=== PATIENT | male | born 1960 | race African-American/Black ===

== ENCOUNTER 2024-05-19 13:57 | Emergency (ER) | payer OTHER ==
[2024-05-19 14:33] VITALS: PULSE 88; RESP 18; TEMP 97.9; BMI 29.1
[2024-05-19 15:39] LABS: EOS % 2.9 % (0-4.5); HEMATOCRIT 35.3 % (35.4-49); HEMOGLOBIN 11.4 GM/dL (11.7-16.9); LYMPH % 21.8 % (8-40); MCH 26.6 pg (25.7-33.7); MCHC 32.4 g/dl (32.0-35.9); MEAN CELL VOLUME 82.2 fl (80-96); MEAN PLT VOLUME 7.3 fl (7.5-11.1); MONO % 8.3 % (3.8-10.2); PLATELET COUNT 316 10^3/uL (134-434); RDW 13.3 % (11.9-15.9); WHITE BLOOD COUNT 7.7 K/mm3 (4.0-10.0)
[2024-05-19 16:02] LABS: POTASSIUM 4.4 mmol/L (3.5-5.1)
[2024-05-19 16:04] LABS: CALCIUM 9.3 mg/dL (8.5-10.1)
[2024-05-19 16:05] LABS: ALBUMIN 3.2 g/dl (3.4-5.0); BLOOD UREA NITROGEN 12.9 mg/dL (7-18)
[2024-05-19 16:07] LABS: CREATININE 1.3 mg/dL (0.55-1.3)
[2024-05-19 16:09] LABS: BILIRUBIN,TOTAL 0.3 mg/dL (0.2-1); TOT PROT 6.8 g/dl (6.4-8.2)
[2024-05-19] MEDS: SODIUM CHLORIDE 0.9% 500 ML INFUS.BAG IV ONE (18:51)
[2024-05-19 19:49] VITALS: BP 122/54
== END 2024-05-19 19:49 | disposition home or self-care (01) ==
LOC: JER 13:57
DX: R42 Dizziness and giddiness (principal); R53.1 Weakness
CPT/HCPCS: 36415; 80053; 84484; 85025; 93005; 93010; 99284-25